=== PATIENT | female | born 1950 | race Caucasian/White ===

== ENCOUNTER 2022-10-03 15:12 | Inpatient (IN) ==
[2022-10-03] MEDS ORDERED: NS 0.9% 1000 ml BAG 2,000 ML IV ONE (15:27)
[2022-10-03 16:11] LABS: ABS Basophils 0.1 10^3/uL (0.0-0.1); ABS Eosinophils 0.2 10^3/uL (0.0-0.5); ABS Lymphocytes 1.3 10^3/uL (1.0-4.8); ABS Monocytes 0.7 10^3/uL (0.0-0.9); ABS Neutrophils 3.8 10^3/uL (1.5-7.6); ABS Nucleated RBC 0.01 10^3/ul; Hematocrit 45.4 % (35-45); Hemoglobin 14.9 g/dL (11.5-14.3); Lymphocyte % 20.7 %; Mean Corpuscular Hemoglobin 27.4 pg (27-33); Mean Corpuscular Hgb Conc 32.8 g/dL (31-36); Mean Corpuscular Volume 83.5 fL (80-97); Mean Platelet Volume 9.2 fL (7.5-11.2); Nucleated Red Blood Cells % 0.2 /100 WBC (0.0-0.4); Platelet Count 218 10^3/uL (150-450); Red Blood Count 5.44 10^6/uL (3.63-4.92); Red Cell Distribution Width 17.9 % (12-17); White Blood Count 6.1 10^3/uL (3.8-11.8)
[2022-10-03 16:30] LABS: ALT 19 U/L (7-52); AST 83 U/L (13-39); Albumin 4.3 g/dL (3.2-5.2); Albumin/Globulin Ratio 1.1 (1-3); Alkaline Phosphatase 96 U/L (35-149); Blood Urea Nitrogen 57 mg/dL (6-24); CO2 Carbon Dioxide 23 mmol/L (22-32); Calcium 10.3 mg/dL (8.6-10.3); Chloride 105 mmol/L (101-111); Creatinine, Serum 1.56 mg/dL (0.51-0.95); Globulin 3.8 g/dL (2-4); Glucose 149 mg/dL (70-100); Sodium 131 mmol/L (135-145); Total Protein 8.1 g/dL (6.4-8.9); eGFR CKD-EPI 35.1 (>60)
[2022-10-03 16:33] LABS: High Sens Troponin Baseline 28 pg/mL (<15)
[2022-10-03 16:45] LABS: Anion Gap 3 mmol/L (2-16)
[2022-10-03 17:38] LABS: Potassium Redraw 4.6 mmol/L (3.5-5.0)
[2022-10-03] MEDS ORDERED: cefTRIAXone 1 gm/50 mL D5W 1 GM/50 ML BAG IV ONE (17:41)
[2022-10-03 17:45] LABS: High Sensitivity Troponin 1 Hr 28 pg/mL (<15)
[2022-10-03 17:57] LABS: Urine Appearance Turbid; Urine Bilirubin Negative (Negative); Urine Blood 1+ (Negative); Urine Color Yellow; Urine Glucose Negative (Negative); Urine Ketones Negative (Negative); Urine Nitrite Negative (Negative); Urine Protein 2+(100 mg/dL) (Negative); Urine Specific Gravity 1.014 (1.002-1.030); Urine Urobilinogen Negative (Negative)
[2022-10-03 18:22] LABS: Urine White Blood Cell 3+(>20/hpf) (Absent)
[2022-10-03 18:23] LABS: Urine Amorphous Crystals Present (Absent); Urine Bacteria 3+ (Absent); Urine Red Blood Cell Absent (Absent)
[2022-10-03 20:05] LABS: Creatine Kinase 104 U/L (10-223)
[2022-10-03] MEDS ORDERED: Cefepime 2 GM in Dextrose 2 GM/50 ML BAG IV SCH (21:00)
[2022-10-03] MEDS: Senna TAB 8.6 mg TAB PO SCH (21:22)
[2022-10-03] MEDS ORDERED: Piperacillin/Tazobac 3.375 BAG 3.375 GM/100 ML BAG IV ONE (21:24)
[2022-10-03] MEDS ORDERED: Magnesium Sulfate 2 gm BAG 2 GM/50 ML BAG IVPB ONE (21:40)
[2022-10-03 21:58] LABS: Magnesium 2.4 mg/dL (1.9-2.7)
[2022-10-03] MEDS ORDERED: Zosyn per Pharmacy NOTE FOLLOW UP SCH (22:00)
[2022-10-04 00:02] LABS: C Reactive Protein 14.75 mg/L (<8.01)
[2022-10-04 07:21] LABS: ABS Eosinophils 0.3 10^3/uL (0.0-0.5); ABS Lymphocytes 0.9 10^3/uL (1.0-4.8); ABS Monocytes 0.6 10^3/uL (0.0-0.9); ABS Neutrophils 4.5 10^3/uL (1.5-7.6); ABS Nucleated RBC 0.01 10^3/ul; Eosinophil % 3.9 %; Hematocrit 42.4 % (35-45); Hemoglobin 13.8 g/dL (11.5-14.3); Lymphocyte % 14.9 %; Mean Corpuscular Hemoglobin 27.1 pg (27-33); Mean Corpuscular Hgb Conc 32.4 g/dL (31-36); Mean Corpuscular Volume 83.7 fL (80-97); Mean Platelet Volume 8.5 fL (7.5-11.2); Nucleated Red Blood Cells % 0.1 /100 WBC (0.0-0.4); Platelet Count 182 10^3/uL (150-450); Red Blood Count 5.07 10^6/uL (3.63-4.92); Red Cell Distribution Width 17.5 % (12-17); White Blood Count 6.4 10^3/uL (3.8-11.8)
[2022-10-04 07:27] LABS: INR 1.22 (0.88-1.18)
[2022-10-04 07:40] LABS: Albumin 3.5 g/dL (3.2-5.2); Albumin/Globulin Ratio 1.1 (1-3); Calcium 10.1 mg/dL (8.6-10.3); Creatinine, Serum 1.29 mg/dL (0.51-0.95); Globulin 3.2 g/dL (2-4); Magnesium 2.6 mg/dL (1.9-2.7); Total Bilirubin 0.4 mg/dL (0.2-1.0); Total Protein 6.7 g/dL (6.4-8.9); eGFR CKD-EPI 44.1 (>60)
[2022-10-04] MEDS: Polyethylene Glycol 3350 17 GM PACKET PO SCH (08:30)
[2022-10-04] MEDS ORDERED: Cefepime 2 GM in Dextrose 2 GM/50 ML BAG IV SCH (09:00)
[2022-10-04] MEDS: Ondansetron 4 mg VIAL 2 MG/ML 2 ml VIAL IV PRN (13:35)
[2022-10-04] MEDS ORDERED: NS 0.9% 500 ml BAG 500 ML IV ONE (14:12)
[2022-10-04 14:29] LABS: Osmolality Serum 307 mOsm/kg (275-295)
[2022-10-04] MEDS: Meropenem 1 GM PREMIX(*) 1 GM/50 ML BAG IV SCH (16:00)
[2022-10-04] MEDS: Nystatin TOP POWDER 15 GM BTL TOPICAL SCH (21:15)
[2022-10-04] MEDS: Senna TAB 8.6 mg TAB PO SCH (21:17)
[2022-10-05] MEDS: Meropenem 1 GM PREMIX(*) 1 GM/50 ML BAG IV SCH (03:27)
[2022-10-05 06:30] LABS: Urine Osmo 411 mOsm/kg (150-1150)
[2022-10-05 07:00] LABS: Calcium 9.3 mg/dL (8.6-10.3); Creatinine, Serum 1.22 mg/dL (0.51-0.95); Potassium 4.5 mmol/L (3.5-5.0); eGFR CKD-EPI 47.2 (>60)
[2022-10-05] MEDS: Polyethylene Glycol 3350 17 GM PACKET PO SCH (08:42)
[2022-10-05] MEDS: Ondansetron 4 mg VIAL 2 MG/ML 2 ml VIAL IV PRN (08:57)
[2022-10-05] MEDS ORDERED: Piperacillin/Tazobac 3.375 BAG 3.375 GM/100 ML BAG IV ONE (10:04)
[2022-10-05] MEDS ORDERED: Zosyn per Pharmacy NOTE FOLLOW UP SCH (11:00)
[2022-10-05] MEDS: Nystatin TOP POWDER 15 GM BTL TOPICAL SCH ×2 (11:06→20:35)
[2022-10-05] MEDS: dilTIAZem 30 MG TAB PO SCH ×2 (14:25→18:19)
[2022-10-05] MEDS: ZOSYN 3.375 GM Q8H per EXTENDED INFUSION IV SCH ×2 (15:17→23:20)
[2022-10-05] MEDS: Senna TAB 8.6 mg TAB PO SCH (20:39)
[2022-10-06] MEDS: dilTIAZem 30 MG TAB PO SCH ×4 (00:16→18:31)
[2022-10-06 06:44] LABS: ABS Eosinophils 0.2 10^3/uL (0.0-0.5); ABS Lymphocytes 0.9 10^3/uL (1.0-4.8); ABS Monocytes 0.5 10^3/uL (0.0-0.9); ABS Neutrophils 3.1 10^3/uL (1.5-7.6); Eosinophil % 4.3 %; Hematocrit 37.6 % (35-45); Hemoglobin 12.5 g/dL (11.5-14.3); Lymphocyte % 19.8 %; Mean Corpuscular Hemoglobin 27.3 pg (27-33); Mean Corpuscular Hgb Conc 33.3 g/dL (31-36); Mean Platelet Volume 8.5 fL (7.5-11.2); Nucleated Red Blood Cells % 0.1 /100 WBC (0.0-0.4); Platelet Count 169 10^3/uL (150-450); Red Blood Count 4.58 10^6/uL (3.63-4.92); Red Cell Distribution Width 16.9 % (12-17); White Blood Count 4.7 10^3/uL (3.8-11.8)
[2022-10-06 06:57] LABS: Calcium 9.3 mg/dL (8.6-10.3); Creatinine, Serum 1.24 mg/dL (0.51-0.95); Potassium 4.2 mmol/L (3.5-5.0); eGFR CKD-EPI 46.2 (>60)
[2022-10-06] MEDS ORDERED: Sulfur Hexaflouride MICROSPHR 25 MG VIAL ONE (07:39)
[2022-10-06] MEDS: Polyethylene Glycol 3350 17 GM PACKET PO SCH (08:30)
[2022-10-06] MEDS: ZOSYN 3.375 GM Q8H per EXTENDED INFUSION IV SCH ×2 (08:31→15:11)
[2022-10-06] MEDS: Nystatin TOP POWDER 15 GM BTL TOPICAL SCH ×2 (08:32→19:56)
[2022-10-06] MEDS ORDERED: Ondansetron 4 mg VIAL 2 MG/ML 2 ml VIAL IV PRN (13:38)
[2022-10-06] MEDS ORDERED: Acetaminophen IV 1 GM/100ML 1,000 MG/100 ML BAG IV PRN (16:58)
[2022-10-06] MEDS ORDERED: Lactated Ringers 1000 ml BAG 1,000 ML IV ONE (17:00)
[2022-10-06] MEDS: Senna TAB 8.6 mg TAB PO SCH (19:57)
[2022-10-07] MEDS: ZOSYN 3.375 GM Q8H per EXTENDED INFUSION IV SCH ×4 (00:05→23:20)
[2022-10-07] MEDS: dilTIAZem 30 MG TAB PO SCH ×2 (00:05→06:31)
[2022-10-07 07:21] LABS: Calcium 8.8 mg/dL (8.6-10.3); Creatinine, Serum 1.11 mg/dL (0.51-0.95); Potassium 3.7 mmol/L (3.5-5.0); eGFR CKD-EPI 52.8 (>60)
[2022-10-07] MEDS ORDERED: Potassium EFFERVES 25 meq TAB PO ONE (07:24)
[2022-10-07] MEDS: Polyethylene Glycol 3350 17 GM PACKET PO SCH (09:15)
[2022-10-07] MEDS: Nystatin TOP POWDER 15 GM BTL TOPICAL SCH ×2 (09:56→21:15)
[2022-10-07] MEDS: Senna TAB 8.6 mg TAB PO SCH (21:16)
[2022-10-08 06:51] LABS: Hematocrit 38.7 % (35-45); Hemoglobin 12.8 g/dL (11.5-14.3); Mean Corpuscular Hemoglobin 27.2 pg (27-33); Mean Corpuscular Hgb Conc 33.2 g/dL (31-36); Mean Corpuscular Volume 81.9 fL (80-97); Platelet Count 196 10^3/uL (150-450); Red Blood Count 4.72 10^6/uL (3.63-4.92); Red Cell Distribution Width 17.6 % (12-17); White Blood Count 6.1 10^3/uL (3.8-11.8)
[2022-10-08 07:04] LABS: Calcium 9.1 mg/dL (8.6-10.3); Creatinine, Serum 1.09 mg/dL (0.51-0.95); Potassium 4.3 mmol/L (3.5-5.0)
[2022-10-08 07:21] LABS: ABS Eosinophils 0.2 10^3/uL (0.0-0.5); ABS Lymphocytes 1.1 10^3/uL (1.0-4.8); ABS Monocytes 0.6 10^3/uL (0.0-0.9); ABS Neutrophils 4.3 10^3/uL (1.5-7.6); ABS Nucleated RBC 0.01 10^3/ul; Eosinophil % 2.5 %; Lymphocyte % 17.9 %; Nucleated Red Blood Cells % 0.2 /100 WBC (0.0-0.4)
[2022-10-08] MEDS: Polyethylene Glycol 3350 17 GM PACKET PO SCH (10:04)
[2022-10-08] MEDS: ZOSYN 3.375 GM Q8H per EXTENDED INFUSION IV SCH ×3 (10:05→23:57)
[2022-10-08] MEDS: Nystatin TOP POWDER 15 GM BTL TOPICAL SCH ×2 (12:35→20:30)
[2022-10-08] MEDS ORDERED: Lactated Ringers 1000 ml BAG 1,000 ML IV SCH (16:00)
[2022-10-08] MEDS: Senna TAB 8.6 mg TAB PO SCH (20:27)
[2022-10-09] MEDS ORDERED: Metoprolol Tartrate 5 mg VIAL 5 ml VIAL (1 mg/ml) IV ONE (04:00)
[2022-10-09 06:10] LABS: Calcium 8.9 mg/dL (8.6-10.3); Creatinine, Serum 1.07 mg/dL (0.51-0.95); Magnesium 1.8 mg/dL (1.9-2.7); Potassium 3.5 mmol/L (3.5-5.0); eGFR CKD-EPI 55.2 (>60)
[2022-10-09] MEDS ORDERED: Magnesium Sulfate 2 gm BAG 2 GM/50 ML BAG IVPB ONE (07:13)
[2022-10-09] MEDS ORDERED: Potassium Chlor 20 meq TAB.ER PO ONE (07:22)
[2022-10-09] MEDS: Nystatin TOP POWDER 15 GM BTL TOPICAL SCH ×2 (10:31→22:06)
[2022-10-09] MEDS: Polyethylene Glycol 3350 17 GM PACKET PO SCH (10:32)
[2022-10-09] MEDS: ZOSYN 3.375 GM Q8H per EXTENDED INFUSION IV SCH ×3 (12:39→19:02)
[2022-10-09] MEDS: Senna TAB 8.6 mg TAB PO SCH (22:02)
[2022-10-10] MEDS: ZOSYN 3.375 GM Q8H per EXTENDED INFUSION IV SCH ×3 (02:07→17:09)
[2022-10-10 07:56] LABS: Hematocrit 38.9 % (35-45); Hemoglobin 12.8 g/dL (11.5-14.3); Mean Corpuscular Hemoglobin 27.2 pg (27-33); Mean Corpuscular Hgb Conc 32.8 g/dL (31-36); Mean Corpuscular Volume 82.7 fL (80-97); Mean Platelet Volume 7.8 fL (7.5-11.2); Platelet Count 192 10^3/uL (150-450); Red Blood Count 4.71 10^6/uL (3.63-4.92); Red Cell Distribution Width 17.4 % (12-17); White Blood Count 6.9 10^3/uL (3.8-11.8)
[2022-10-10 08:15] LABS: ABS Eosinophils 0.1 10^3/uL (0.0-0.5); ABS Monocytes 0.6 10^3/uL (0.0-0.9); ABS Neutrophils 5.1 10^3/uL (1.5-7.6); Lymphocyte % 14.8 %; Nucleated Red Blood Cells % 0.1 /100 WBC (0.0-0.4)
[2022-10-10 08:16] LABS: Calcium 8.5 mg/dL (8.6-10.3); Creatinine, Serum 0.99 mg/dL (0.51-0.95); Potassium 3.8 mmol/L (3.5-5.0); eGFR CKD-EPI 60.6 (>60)
[2022-10-10] MEDS: Nystatin TOP POWDER 15 GM BTL TOPICAL SCH ×2 (09:53→20:11)
[2022-10-10] MEDS: Polyethylene Glycol 3350 17 GM PACKET PO SCH (09:53)
[2022-10-10 14:52] LABS: Urine Appearance Cloudy; Urine Bilirubin Negative (Negative); Urine Blood Negative (Negative); Urine Color Yellow; Urine Glucose Negative (Negative); Urine Ketones Negative (Negative); Urine Nitrite Negative (Negative); Urine Protein Negative (Negative); Urine Specific Gravity 1.008 (1.002-1.030); Urine Urobilinogen Negative (Negative)
[2022-10-10 14:55] LABS: Urine Bacteria 1+ (Absent); Urine Red Blood Cell 1+(3-5/hpf) (Absent); Urine Squamous Epithelial Cell Present (Absent); Urine White Blood Cell 3+(>20/hpf) (Absent); Urine Yeast Present (Absent)
[2022-10-10] MEDS: Senna TAB 8.6 mg TAB PO SCH (20:08)
[2022-10-10] MEDS ORDERED: Lactated Ringers 1000 ml BAG 1,000 ML IV ONE (23:45)
[2022-10-11] MEDS: ZOSYN 3.375 GM Q8H per EXTENDED INFUSION IV SCH ×3 (02:14→18:15)
[2022-10-11] MEDS ORDERED: Metoprolol Tartrate 5 mg VIAL 5 ml VIAL (1 mg/ml) IV ONE (02:58)
[2022-10-11] MEDS ORDERED: Metoprolol Tartrate 5 mg VIAL 5 ml VIAL (1 mg/ml) IV PRN (04:54)
[2022-10-11 06:58] LABS: Calcium 8.3 mg/dL (8.6-10.3); Creatinine, Serum 0.91 mg/dL (0.51-0.95); Potassium 3.7 mmol/L (3.5-5.0)
[2022-10-11] MEDS: Nystatin TOP POWDER 15 GM BTL TOPICAL SCH ×2 (07:45→20:45)
[2022-10-11] MEDS: Polyethylene Glycol 3350 17 GM PACKET PO SCH (07:46)
[2022-10-11] MEDS ORDERED: NS 0.9% 1000 ml BAG 1,000 ML IV ONE (11:00)
[2022-10-11] MEDS ORDERED: Potassium Chlor 20 meq TAB.ER PO ONE (18:57)
[2022-10-11] MEDS: Senna TAB 8.6 mg TAB PO SCH (20:45)
[2022-10-12] MEDS: ZOSYN 3.375 GM Q8H per EXTENDED INFUSION IV SCH ×2 (02:18→10:28)
[2022-10-12] MEDS: Nystatin TOP POWDER 15 GM BTL TOPICAL SCH ×2 (08:07→20:52)
[2022-10-12 12:38] LABS: Rapid COVID-19 Molecular Undetected (Undetected)
[2022-10-13] MEDS: Nystatin TOP POWDER 15 GM BTL TOPICAL SCH (08:52)
[2022-10-13 09:00] VITALS: BP 109/80
== END 2022-10-13 09:10 | DRG 71 ==
LOC: ED 15:12 → EDHOLD 20:38 → SUATTDRO 20:38 → MEDTELE 10-04 00:59
PROVIDERS: ADMIT Hospitalist; ATTEND Internal Medicine

== ENCOUNTER 2022-10-14 10:30 | Inpatient (IN) ==
[2022-10-14 11:59] LABS: ABS Basophils 0.1 10^3/uL (0.0-0.1); ABS Eosinophils 0.2 10^3/uL (0.0-0.5); ABS Lymphocytes 1.6 10^3/uL (1.0-4.8); ABS Monocytes 0.6 10^3/uL (0.0-0.9); ABS Neutrophils 7.6 10^3/uL (1.5-7.6); ABS Nucleated RBC 0.01 10^3/ul; Eosinophil % 2.4 %; Hematocrit 40.2 % (35-45); Hemoglobin 13.1 g/dL (11.5-14.3); Lymphocyte % 15.7 %; Mean Corpuscular Hemoglobin 27.3 pg (27-33); Mean Corpuscular Hgb Conc 32.7 g/dL (31-36); Mean Corpuscular Volume 83.6 fL (80-97); Mean Platelet Volume 8.2 fL (7.5-11.2); Nucleated Red Blood Cells % 0.1 /100 WBC (0.0-0.4); Platelet Count 191 10^3/uL (150-450); Red Blood Count 4.81 10^6/uL (3.63-4.92); Red Cell Distribution Width 17.1 % (12-17); White Blood Count 10.3 10^3/uL (3.8-11.8)
[2022-10-14 12:08] LABS: Activated Partial Thrombo Time 37.4 seconds (26.0-38.0); INR 1.32 (0.83-1.13)
[2022-10-14 12:16] LABS: Albumin 3.1 g/dL (3.2-5.2); Albumin/Globulin Ratio 1.3 (1-3); C Reactive Protein 26.09 mg/L (<8.01); Calcium 8.2 mg/dL (8.6-10.3); Creatinine, Serum 0.84 mg/dL (0.51-0.95); Globulin 2.4 g/dL (2-4); Potassium 3.5 mmol/L (3.5-5.0); Total Bilirubin 0.6 mg/dL (0.2-1.0); Total Protein 5.5 g/dL (6.4-8.9); eGFR CKD-EPI 73.8 (>60)
[2022-10-14 13:56] LABS: High Sensitivity Troponin 1 Hr 23 pg/mL (<15)
[2022-10-14 15:41] LABS: Urine Appearance Clear; Urine Bilirubin Negative (Negative); Urine Blood Negative (Negative); Urine Color Yellow; Urine Glucose Negative (Negative); Urine Ketones Negative (Negative); Urine Nitrite Negative (Negative); Urine Protein Negative (Negative); Urine Specific Gravity 1.009 (1.002-1.030); Urine Urobilinogen Negative (Negative)
[2022-10-14 15:50] LABS: Urine Amorphous Crystals Present (Absent); Urine Bacteria 1+ (Absent); Urine Red Blood Cell Trace(0-2/hpf) (Absent); Urine Squamous Epithelial Cell Present (Absent); Urine White Blood Cell 1+(6-10/hpf) (Absent); Urine Yeast Present (Absent)
[2022-10-14] MEDS ORDERED: Sulfamethox/Trimethoprim DS TAB 800/160 mg PO ONE (16:00)
[2022-10-14] MEDS ORDERED: Piperacillin/Tazobac 3.375 BAG 3.375 GM/100 ML BAG IV ONE (16:07)
[2022-10-15 06:06] LABS: Hematocrit 35.7 % (35-45); Hemoglobin 11.7 g/dL (11.5-14.3); Mean Corpuscular Hemoglobin 27.3 pg (27-33); Mean Corpuscular Hgb Conc 32.8 g/dL (31-36); Mean Corpuscular Volume 83.2 fL (80-97); Mean Platelet Volume 8.5 fL (7.5-11.2); Platelet Count 161 10^3/uL (150-450); Red Blood Count 4.29 10^6/uL (3.63-4.92); Red Cell Distribution Width 16.8 % (12-17); White Blood Count 7.7 10^3/uL (3.8-11.8)
[2022-10-15 06:24] LABS: Calcium 8.2 mg/dL (8.6-10.3); Creatinine, Serum 1.05 mg/dL (0.51-0.95); Magnesium 1.7 mg/dL (1.9-2.7); Potassium 3.7 mmol/L (3.5-5.0); eGFR CKD-EPI 56.5 (>60)
[2022-10-15] MEDS ORDERED: Magnesium Sulfate 2 gm BAG 2 GM/50 ML BAG IVPB ONE (08:00)
[2022-10-15] MEDS ORDERED: Potassium EFFERVES 25 meq TAB PO ONE (12:02)
[2022-10-15] MEDS ORDERED: Potassium Chloride IV 40 MEQ in Lactated Ringers 1000 ml BAG 1,000 ML IVPB ONE (12:03)
[2022-10-16 06:50] LABS: Calcium 8.1 mg/dL (8.6-10.3); Creatinine, Serum 1.06 mg/dL (0.51-0.95); Magnesium 2.1 mg/dL (1.9-2.7); Potassium 3.8 mmol/L (3.5-5.0); eGFR CKD-EPI 55.8 (>60)
[2022-10-16] MEDS: Nystatin TOP POWDER 15 GM BTL TOPICAL SCH ×2 (09:27→21:50)
[2022-10-17] MEDS: Nystatin TOP POWDER 15 GM BTL TOPICAL SCH ×2 (10:24→21:54)
[2022-10-17] MEDS ORDERED: NS 0.9% 250 ml 250 ML IV ONE (11:36)
[2022-10-18] MEDS: Nystatin TOP POWDER 15 GM BTL TOPICAL SCH ×2 (10:41→20:22)
[2022-10-18 11:54] LABS: ABS Eosinophils 0.1 10^3/uL (0.0-0.5); ABS Lymphocytes 0.8 10^3/uL (1.0-4.8); ABS Monocytes 0.5 10^3/uL (0.0-0.9); ABS Neutrophils 2.7 10^3/uL (1.5-7.6); ABS Nucleated RBC 0.01 10^3/ul; Eosinophil % 2.1 %; Hematocrit 34.9 % (35-45); Hemoglobin 11.2 g/dL (11.5-14.3); Lymphocyte % 18.8 %; Mean Corpuscular Hemoglobin 27.1 pg (27-33); Mean Corpuscular Hgb Conc 32.2 g/dL (31-36); Mean Corpuscular Volume 84.2 fL (80-97); Mean Platelet Volume 8.5 fL (7.5-11.2); Nucleated Red Blood Cells % 0.3 /100 WBC (0.0-0.4); Platelet Count 122 10^3/uL (150-450); Red Blood Count 4.15 10^6/uL (3.63-4.92); Red Cell Distribution Width 17.3 % (12-17); White Blood Count 4.1 10^3/uL (3.8-11.8)
[2022-10-18 12:53] LABS: CO2 Carbon Dioxide 20 mmol/L (22-32); Calcium 7.5 mg/dL (8.6-10.3); Chloride 109 mmol/L (101-111); Sodium 139 mmol/L (135-145)
[2022-10-18 12:59] LABS: Blood Urea Nitrogen 18 mg/dL (6-24); Creatinine, Serum 0.93 mg/dL (0.51-0.95); Glucose 87 mg/dL (70-100); eGFR CKD-EPI 65.3 (>60)
[2022-10-18 13:00] LABS: Anion Gap 10 mmol/L (2-16)
[2022-10-19 11:09] LABS: Rapid COVID-19 Molecular Undetected (Undetected)
[2022-10-19] MEDS: Nystatin TOP POWDER 15 GM BTL TOPICAL SCH (11:26)
[2022-10-19 15:49] VITALS: BP 103/62
== END 2022-10-19 17:25 | DRG 92 ==
LOC: ED 10:30 → EDHOLD 10:30 → SUATTDRO 17:18 → MEDTELE 20:20 → SUATTDRO 10-15 14:00
PROVIDERS: ADMIT Internal Medicine; ATTEND Hospitalist